=== PATIENT | female | born 1990 | race Caucasian/White ===

== ENCOUNTER → 2018-10-04 17:17 | Emergency (ER) | payer OTHER ==
[~2018-10-04 17:17] MED LIST: Heparin DRIP 25,000 UNITS(*) 25,000 UNITS/500 ML BAG IV SCH; Heparin VIAL(*) 5000 UNITS/ML VIAL (FIVE THOUSAND) IV SCH
--- NOTE | 2018-10-04 18:13 | ED ---
Lower Extremity - HPI Summary HPI Summary: This patient is a 28 year old female presenting to [facility] with a chief complaint of possible Reynaud's syndrome. She was sent here because an U/S showed inadequate circulation to her right foot. The patient's right foot had purple coloration and numbness. She reports numbness in the extremity and tightness in her calf. She states she had a burning pain a few days ago that has since resolved. Pt denies any fever, chills, erythema of eyes, sore throat, CP, SOB, cough, abdominal pain, N/V, dysuria, hematuria, myalgia, edema, rash, or dizziness. - History of Current Complaint Chief Complaint: EDExtremityLower Stated Complaint: HAD U/S, SENT HERE BY PER PT Time Seen by Provider: 10/04/18 18:07 Hx Obtained From: Patient Pain Intensity: 2 - Allergies/Home Medications Allergies/Adverse Reactions: Allergies Allergy/AdvReac Type Severity Reaction Status Date / Time bee Allergy Anaphylatic Uncoded 10/04/18 17:24 Shock Home Medications: Home Medications Cranberry Fruit Extract [Cranberry] 1,000 mg PO DAILY 10/04/18 [History Confirmed 10/04/18] Cyanocobalamin TAB* [Vitamin B12 TAB*] 1,000 mg PO DAILY 10/04/18 [History Confirmed 10/04/18] LoraTADine TAB(NF) [Claritin 10 MG TAB(NF)] 10 mg PO DAILY 10/04/18 [History Confirmed 10/04/18] Norethindrone-E.estradiol-Iron [Junel Fe 1 mg-20 Mcg Tablet] 1 tab PO DAILY [History Confirmed 10/04/18] PMH/Surg Hx/FS Hx/Imm Hx Infectious Disease History: No Infectious Disease History: Denies: Traveled Outside the [place] in Last 30 Days - Family History Known Family History: Positive: Other - Renal Cancer - Social History Lives: With Family Alcohol Use: Occasionally Substance Use Type: Reports: None Hx Tobacco Use: No Review of Systems Negative: Fever, Chills Negative: Erythema Negative: Sore Throat Negative: Chest Pain Negative: Shortness Of Breath, Cough Negative: Abdominal Pain, Vomiting, Nausea Negative: dysuria, hematuria Positive: Other - Pain and discoloration of right foot. . Negative: Myalgia, Edema Negative: Rash Neurological: Other - Neg: Dizziness Positive: Numbness - Right foot. All Other Systems Reviewed And Are Negative: No Physical Exam - Summary Physical Exam Summary: Constitutional: Well-developed, Well-nourished, Alert. (-) Distressed Skin: Warm, Dry HENT: Normocephalic; Atraumatic Eyes: Conjunctiva normal Neck: Musculoskeletal ROM normal neck. (-) JVD, (-) Stridor, (-) Tracheal deviation Cardio: Rhythm regular, rate normal, Heart sounds normal; Intact distal pulses; The pedal pulses are 2+ and symmetric. Radial pulses are 2+ and symmetric. (-) Murmur Pulmonary/Chest wall: Effort normal. (-) Respiratory distress, (-) Wheezes, (-) Rales Abd: Soft, (-) tenderness, (-) Distension, (-) Guarding, (-) Rebound Musculoskeletal: (-) Edema. Right foot is cold to palpation. No dorsalis pedis or posterior tibialis pulse. Lymph: (-) Cervical adenopathy Neuro: Alert, Oriented x3 Triage Information Reviewed: Yes Vital Signs On Initial Exam: Initial Vitals Temp Pulse Resp BP Pulse Ox 98 F 61 18 130/93 100 10/04/18 17:20 10/04/18 17:20 10/04/18 17:20 10/04/18 17:20 10/04/18 17:20 Vital Signs Reviewed: Yes Diagnostics - Vital Signs Vital Signs Temp Pulse Resp BP Pulse Ox 10/04/18 17:20 98 F 61 18 130/93 100 - Laboratory Result Diagrams: 10/04/18 19:03 10/04/18 19:03 Lab Statement: Any lab studies that have been ordered have been reviewed, and results considered in the medical decision making process. Re-Evaluation - Re-Evaluation First Eval Re-Evaluation Time: 20:00 Change: Unchanged Lower Extremity Course/Dx - Course Course Of Treatment: This patient is a 28 year old female presenting to [facility] with a chief complaint of possible Reynaud's syndrome in her right foot. Physical exam revealed right foot cold to touch and no dorsalis pedis or posterior tibialis pulses. Due to the lack of vascular specialist to deal with the vascular occlusion of her right foot in this facility, this patient will need to be transferred to higher level of care. The patient was accepted by Dr. Gaspar, Vasculary Surgery, who accepted the patient for transfer and will admit the patient through the ED at [facility]. He also recommended a Heparin drip for the patient here. This plan was discussed with the patient and she was agreeable with this plan. The likely etiology is renal in syndrome, however thrombus or other occlusion must be considered. Emergent vascular consultation tonight. - Diagnoses Provider Diagnoses: Vascular occlusion - Critical Care Time Critical Care Time: 30-74 min Discharge - Sign-Out/Discharge Documenting (check all that apply): Patient Departure - Transfer - Discharge Plan Condition: Good Disposition: TRANS HIGHER LVL OF CARE FAC - Billing Disposition and Condition Condition: GOOD Disposition: Trans Higher Lvl of Care Fac - Attestation Statements Document Initiated by Gui: Yes Documenting Scribe: Alon Braga Provider For Whom Gui is Documenting (Include Credential): Michele Simpson MD Scribe Attestation: Alon Rankin scribed for Michele Simpson MD on 10/04/18 at 2002. Scribe Documentation Reviewed: Yes Provider Attestation: The documentation as recorded by the Alon hough accurately reflects the service I personally performed and the decisions made by , Michele Simpson MD Status of Scribe Document: Viewed
[2018-10-04 19:20] LABS: Hematocrit 38 % (35-47); Hemoglobin 12.6 g/dL (12.0-16.0); Mean Corpuscular HGB Conc 34 g/dL (31-36); Mean Corpuscular Hemoglobin 32 pg (27-31); Mean Corpuscular Volume 95 fL (80-97); Mean Platelet Volume 7.3 fL (7.4-10.4); Platelet Count 304 10^3/uL (150-450); Red Blood Count 3.93 10^6 /uL (3.70-4.87); Red Cell Distribution Width 14 % (10.5-15); White Blood Count 6.8 10^3/uL (3.5-10.8)
[2018-10-04 19:29] LABS: INR 0.93 (0.82-1.09)
[2018-10-04 19:46] LABS: Albumin 4.1 g/dL (3.2-5.2); Albumin/Globulin Ratio 1.7 (1-3); BUN/Creatinine Ratio 16.5 (8-20); Calcium 9.2 mg/dL (8.6-10.3); EGFR African American 95.7 (>60); EGFR Non-African American 79.1 (>60); Globulin 2.4 g/dL (2-4); Potassium 4.5 mmol/L (3.5-5.0); Total Bilirubin 0.3 mg/dL (0.2-1.0); Total Protein 6.5 g/dL (6.4-8.9)
[2018-10-04 21:03] VITALS: BP 113/77
== END | disposition short-term general hospital (02) ==
LOC: ED 17:17
DX: I99.8 Other disorder of circulatory system (principal)
CPT/HCPCS: 36415; 80053; 85027; 85610; 85730; 99283; J1644